=== PATIENT | female | born 1980 ===

== ENCOUNTER 2017-03-14 08:49 | Observation (INO) | payer OTHER ==
--- NOTE | 2017-03-14 09:14 | C.PDOC ---
History Of Present Illness PERSIST MENSES X 13 DAYS. LONGER THAN USUAL, NORMALLY 3 DAYS LONG. +PELVIC PAIN. NO OTHER ASSOC SX EXAM NAD MILD PALLOR ABD NEG REMAINDER NEG Time Seen by Provider: 03/14/17 09:08 Chief Complaint (Nursing): Female Genitourinary History Per: Patient History/Exam Limitations: no limitations Onset/Duration Of Symptoms: Days (13) Current Symptoms Are (Timing): Still Present Quality Of Discomfort: "Pain" Associated Symptoms: denies: Fever, Chills, Vomiting, Urinary Symptoms Recent travel outside of the [place]: No Abnormal Vaginal Bleeding: Yes Past Medical History Reviewed: Historical Data, Nursing Documentation, Vital Signs Vital Signs: Last Vital Signs Temp 98.9 F 03/14/17 13:35 Pulse 93 H 03/14/17 13:35 Resp 18 03/14/17 13:35 BP 120/80 03/14/17 13:35 Pulse Ox 99 03/14/17 13:35 - Medical History PMH: No Chronic Diseases Family History: States: Unknown Family Hx Review Of Systems Except As Marked, All Systems Reviewed And Found Negative. Constitutional: Negative for: Fever, Chills Gastrointestinal: Negative for: Nausea, Vomiting, Abdominal Pain Genitourinary: Positive for: Vaginal Bleeding, Pelvic Pain. Negative for: Dysuria, Frequency Skin: Negative for: Rash Physical Exam - Physical Exam Appears: Non-toxic, No Acute Distress Skin: Warm, Dry, Pale (MILD PALLOR) Head: Atraumatic, Normacephalic Oral Mucosa: Moist Chest: Symmetrical Cardiovascular: Rhythm Regular, No Murmur Respiratory: Normal Breath Sounds, No Rales, No Rhonchi, No Wheezing Gastrointestinal/Abdominal: Soft, No Tenderness, No Guarding, No Rebound Back: Normal Inspection Extremity: Normal ROM, Capillary Refill (< 2 SEC.) Neurological/Psych: Oriented x3, Normal Speech, Normal Cognition ED Course And Treatment - Laboratory Results Result Diagrams: 03/14/17 09:34 03/14/17 09:50 Urine POC: Positive O2 Sat by Pulse Oximetry: 100 (RA) Pulse Ox Interpretation: Normal Progress - Re-Evaluation Re-evaluation Note: 03/14/17 09:19 BLOODWORK, UA ORDERED. 03/14/17 13:32 APPEARS COMFORTABLE NAD VSS D/W DR BRICE DEL ROSARIO IN ER 09/12/17 14:02 admit ob obs - Data Reviewed Data Reviewed: Lab, Diagnostic imaging - Critical Care Citical Care: Excluding Proc Time Critical Care Time: 120 minutes - Continuity of Care Discussed patient case with:: Patient Discussed pt. case with organizational consultant/specialty: Obstetrics/Gynecology Disposition Counseled Patient/Family Regarding: Studies Performed, Diagnosis - Disposition Disposition: HOSPITALIZED Disposition Time: 14:02 Condition: STABLE Forms: [facility] (Wolof) - POA Present On Arrival: None - Clinical Impression Clinical Impression: Threatened miscarriage - Scribe Statement The provider has reviewed the documentation as recorded by the Scribe SM All medical record entries made by the Scribe were at my direction and personally dictated by me. I have reviewed the chart and agree that the record accurately reflects my personal performance of the history, physical exam, medical decision making, and the department course for this patient. I have also personally directed, reviewed, and agree with the discharge instructions and disposition. Decision To Admit - Pt Status Changed To: Hospital Disposition Of: Observation - . Bed Request Type: MANAGER PROGRAM Admitting Physician: Oz Black Patient Diagnosis: Threatened miscarriage
[2017-03-14 09:38] LABS: HEMATOCRIT 36.6 % (34.0-47.0); MEAN CELL VOLUME 84.3 fL (81.0-99.0); MEAN CORPUSCULAR HEMOGLOBIN 28.3 pg (27.0-31.0); MEAN CORPUSCULAR HGB CONC 33.5 g/dL (33.0-37.0); RED CELL DISTRIBUTION WIDTH 14.1 % (11.5-14.5); WHITE BLOOD COUNT 7.2 K/uL (4.8-10.8)
[2017-03-14 09:44] LABS: RBC URINE 2 /hpf (0-3); URINE BACTERIA RARE (<OCC); URINE BILIRUBIN NEGATIVE (NEGATIVE); URINE BLOOD 1+ (NEGATIVE); URINE COLOR Yellow (YELLOW); URINE GLUCOSE (UA) NORMAL (Normal); URINE KETONE NEGATIVE (NEGATIVE); URINE LEUKOCYTE ESTERASE NEG Leu/uL (Negative); URINE PROTEIN NEGATIVE (NEGATIVE); URINE UROBILINOGEN NORMAL mg/dL (0.2-1.0); WBC URINE < 1 /hpf (0-5)
[2017-03-14 10:02] LABS: CHLORIDE 105 mmol/L (98-107)
[2017-03-14 10:03] LABS: POTASSIUM 4.1 mmol/L (3.6-5.2); SODIUM 139 mmol/L (132-148)
[2017-03-14 10:05] LABS: ALB/GLOB RATIO 1.2 (1.0-2.1); AST/SGOT 24 U/L (14-36); BILIRUBIN,TOTAL 0.6 mg/dL (0.2-1.3); BLOOD UREA NITROGEN 12 mg/dL (7-17); CARBON DIOXIDE 22 mmol/L (22-30); GFR AFRICAN-AMERICAN > 60; TOTAL PROTEIN 7.7 g/dL (6.3-8.3)
[2017-03-14 10:06] LABS: ALKALINE PHOSPHATASE 43 U/L (38-126); ALT/SGPT 20 U/L (9-52); CALCIUM 9.2 mg/dl (8.6-10.4); GLUCOSE,RANDOM 88 mg/dL (65-105)
--- NOTE | 2017-03-14 13:30 | US ---
Pelvic ultrasound. History: Pelvic pain. . Evaluate for ectopic . Comparison: None available. Technique: Real-time sonography was performed through the pelvis utilizing transabdominal and transvaginal techniques. Findings: LMP of 03/02/2017. Uterus: 8.9 x 5.0 x 6.5 centimeters. Heterogeneous echotexture. Anteverted. Heterogeneous echogenic foci in the anterior fundus of the uterus measuring 1.4 x 1.4 x 1.9 centimeters suggestive for a fibroid lesion. No discrete intrauterine identified. Endometrium measures 6 millimeters. Free fluid noted within the pelvic cul-de-sac and bilateral adnexa. Right ovary: 4.0 x 3.1 x 3.3 centimeters. Normal flow. Small follicles. Left ovary: Enlarged measuring 8.2 x 6.2 x 9.2 centimeters. Heterogeneous to increased flow. Heterogeneous complex cystic lesions with septations and solid mural nodularity at the level of the left ovary measuring 6.2 x 4.4 x 4.4 centimeters and 4.4 x 3.9 x 4.1 centimeters. Additional complex echogenic foci/mass at that level measuring 4 x 3.7 x 3.7 centimeters. Impression: No discrete intrauterine identified. In the setting of a positive test and lack of discrete intrauterine , considerations may include an ectopic versus missed versus early . Clinical correlation. Correlation with [employer] consultation and or follow-up sonogram is recommended if clinically indicated. Complex mass/lesion noted at the level of the left adnexa measuring up to 4.0 centimeters. Prominent enlarged left ovary measuring up to 8.2 centimeters with additional complex cystic lesions containing solid mural nodularity and thickened septations measuring up to 6.2 and 4.4 centimeters. Given a positive test and lack of discrete intrauterine , underlying ectopic at this level cannot be excluded. Clinical correlation. R[employer] C[employer] consultation and or follow-up sonogram may be helpful if clinically indicated. Free fluid within the pelvic cul-de-sac and at the bilateral adnexa. Heterogeneous echogenic foci in the anterior fundus of the uterus measuring 1.4 x 1.4 x 1.9 centimeters suggestive for a fibroid lesion.
[2017-03-14 14:02] VITALS: O2SAT 100
--- NOTE | 2017-03-14 14:24 | CP.PCM.HP ---
History of Present Illness - History of Present Illness History of Present Illness: Patient is a 37 yo presents for vaginal bleeding. Reports that last episode of bleeding (last period as per patient) was 03/02 and it lasted three days. States that she has been having pinkish spotting when wiping since then. Also reports feeling occasional generalized cramping, worse in the LLQ. Patient took a home test two days ago which was positive. Last episode of intercourse was 3 days ago. Denies headaches, dizziness, cp, palpitations, sob, urinary symptoms. OB Hx: G1: 2005 no complications G2: 2015 SAB with D+C, no complications G3: current [employer] Hx: LMP 03/02/ [facility] 13/regular/3-4 days Hx of ovarian cysts Denies hx of fibroids, STIs, abnormal pap smears Allergies: NKDA Medications: denies Medical Hx: PCOS Surgical Hx: denies Social Hx: denies alcohol, tobacco, drug use Family Hx: denies Present on Admission - Present on Admission Any Indicators Present on Admission: No History of DVT/PE: No History of Uncontrolled Diabetes: No Urinary Catheter: No Decubitus Ulcer Present: No Review of Systems - Constitutional Constitutional: As Per HPI. absent: Chills, Fatigue - EENT Eyes: absent: Blurred Vision, Change in Vision Ears: absent: Dizziness - Cardiovascular Cardiovascular: absent: Chest Pain, Dyspnea, Edema, Lightheadedness - Respiratory Respiratory: absent: Cough, Dyspnea, Wheezing - Gastrointestinal Gastrointestinal: Cramping. absent: Abdominal Pain, Constipation, Diarrhea, Nausea, Vomiting - Genitourinary Genitourinary: absent: Difficulty Urinating - Neurological Neurological: absent: Confusion, Dizziness, Headaches - Psychiatric Psychiatric: absent: Anxiety, Confusion, Depression Past Patient History - Infectious Disease Hx of Infectious Diseases: None - Past Social History Smoking Status: Never Smoked - PSYCHIATRIC Hx Substance Use: No - SURGICAL HISTORY Hx Surgeries: No Meds Allergies/Adverse Reactions: Allergies Allergy/AdvReac Type Severity Reaction Status Date / Time No Known Allergies Allergy Verified 03/14/17 09:04 Physical Exam - Constitutional Appears: Well, Non-toxic - Head Exam Head Exam: ATRAUMATIC, NORMAL INSPECTION - Eye Exam Eye Exam: EOMI, Normal appearance Pupil Exam: NORMAL ACCOMODATION, PERRL - ENT Exam ENT Exam: Mucous Membranes Moist - Neck Exam Neck exam: Positive for: Full Rom - Respiratory Exam Respiratory Exam: Clear to Auscultation Bilateral, NORMAL BREATHING PATTERN. absent: Rales, Rhonchi, Wheezes - Cardiovascular Exam Cardiovascular Exam: REGULAR RHYTHM, +S1, +S2. absent: Systolic Murmur - GI/Abdominal Exam GI & Abdominal Exam: Soft. absent: Distended, Guarding, Rebound, Rigid, Tenderness - Extremities Exam Extremities exam: Positive for: normal inspection, pedal pulses present. Negative for: calf tenderness - Back Exam Back exam: NORMAL INSPECTION - Neurological Exam Neurological exam: Alert, CN II-XII Intact, Oriented x3 - Psychiatric Exam Psychiatric exam: Normal Affect, Normal Mood - Skin Skin Exam: Dry, Normal Color, Warm Results - Vital Signs Recent Vital Signs: Last Vital Signs Temp 98.9 F 03/14/17 13:35 Pulse 93 H 03/14/17 13:35 Resp 18 03/14/17 13:35 BP 120/80 03/14/17 13:35 Pulse Ox 100 03/14/17 14:02 - Labs Result Diagrams: 03/14/17 09:34 03/14/17 09:50 Assessment & Plan - Assessment and Plan (Free Text) Assessment: 37 year old presents for vaginal bleeding, early IUP vs Ectopic vs Missed TVUS: No discrete intrauterine identified. In the setting of a positive test and lack of discrete intrauterine , considerations may include an ectopic versus missed versus early . Complex mass/lesion noted at the level of the left adnexa measuring up to 4.0 centimeters. Prominent enlarged left ovary measuring up to 8.2 centimeters with additional complex cystic lesions containing solid mural nodularity and thickened septations measuring up to 6.2 and 4.4 centimeters. Given a positive test and lack of discrete intrauterine , underlying ectopic at this level cannot be excluded. Free fluid within the pelvic cul-de-sac and at the bilateral adnexa. Heterogeneous echogenic foci in the anterior fundus of the uterus measuring 1.4 x 1.4 x 1.9 centimeters suggestive for a fibroid lesion. Plan: 1. Vaginal bleeding (Rule out ectopic vs early IUP vs missed ) - Stable, afebrile - Admit for observation - F/U stat CBC - F/U am beta hcg - Serial abdominal exams - Diet NPO - LR at 125cc/hr - Rh positive, no rhogam needed at this time - Plan d/w attending
[2017-03-14] MEDS: Lactated Ringer's 1,000 ML IV SCH ×2 (15:30→23:21)
[2017-03-14 18:27] LABS: BASO % 0.4 % (0.0-2.0); EOS % 0.2 % (0.0-4.0); LYMPH # 1.6 K/uL (1.0-4.3); LYMPH % 16.7 % (20.0-40.0); MEAN CELL VOLUME 83.6 fL (81.0-99.0); MEAN CORPUSCULAR HEMOGLOBIN 28.6 pg (27.0-31.0); MEAN CORPUSCULAR HGB CONC 34.3 g/dL (33.0-37.0); MEAN PLATELET VOLUME 9.2 fL (7.2-11.7); MONO # 0.5 K/uL (0.0-0.8); MONO % 5.1 % (0.0-10.0); RED CELL DISTRIBUTION WIDTH 13.8 % (11.5-14.5); WHITE BLOOD COUNT 9.9 K/uL (4.8-10.8)
[2017-03-15] MEDS: Lactated Ringer's 1,000 ML IV SCH (06:46)
[2017-03-15 08:11] LABS: BASO % 0.4 % (0.0-2.0); EOS # 0.1 K/uL (0.0-0.7); EOS % 0.8 % (0.0-4.0); LYMPH # 1.7 K/uL (1.0-4.3); LYMPH % 23.5 % (20.0-40.0); MEAN CELL VOLUME 83.9 fL (81.0-99.0); MEAN CORPUSCULAR HEMOGLOBIN 28.3 pg (27.0-31.0); MEAN CORPUSCULAR HGB CONC 33.7 g/dL (33.0-37.0); MEAN PLATELET VOLUME 9.1 fL (7.2-11.7); MONO # 0.4 K/uL (0.0-0.8); MONO % 5.6 % (0.0-10.0); RED CELL DISTRIBUTION WIDTH 13.9 % (11.5-14.5); WHITE BLOOD COUNT 7.4 K/uL (4.8-10.8)
[2017-03-15 08:58] LABS: CHLORIDE 105 mmol/L (98-107)
[2017-03-15 08:59] LABS: SODIUM 139 mmol/L (132-148)
[2017-03-15 09:01] LABS: ALB/GLOB RATIO 1.2 (1.0-2.1); ALKALINE PHOSPHATASE 47 U/L (38-126); AST/SGOT 31 U/L (14-36); BILIRUBIN,TOTAL 0.7 mg/dL (0.2-1.3); CARBON DIOXIDE 25 mmol/L (22-30); GFR AFRICAN-AMERICAN > 60; TOTAL PROTEIN 7.6 g/dL (6.3-8.3)
[2017-03-15 09:02] LABS: ALT/SGPT 20 U/L (9-52); BLOOD UREA NITROGEN 9 mg/dL (7-17); CALCIUM 9.1 mg/dl (8.6-10.4); GLUCOSE,RANDOM 88 mg/dL (65-105)
--- NOTE | 2017-03-15 09:40 | CP.PCM.PN ---
Subjective - Date & Time of Evaluation Date of Evaluation: 03/15/17 Time of Evaluation: 07:15 - Subjective Subjective: Patient seen and examined at bedside. Per nursing no acute events overnight. Exercise Manager Kasandra Araiza in the room. Patient is doing well, denies having abdominal pain. Did not require pain medication for abdominal pain since admission. Denies any vaginal bleeding. States that this is a desired . Denies any nausea/vomiting, headaches, dizziness, cp, palpitations, sob, urinary symptoms. Objective - Vital Signs/Intake and Output Vital Signs (last 24 hours): Temp Pulse Resp BP Pulse Ox 98.7 F 90 18 117/67 100 03/15/17 08:00 03/15/17 08:00 03/15/17 08:00 03/15/17 08:00 03/15/17 08:00 Intake and Output: 03/15/17 03/15/17 06:59 18:59 Intake Total 1500 Balance 1500 - Medications Medications: Current Medications Lactated Ringer's (Lactated Ringer's) 1,000 mls @ 125 mls/hr IV .Q8H LUBA Last Admin: 03/15/17 06:46 Dose: 125 mls/hr - Labs Labs: 03/15/17 08:03 03/15/17 08:03 - Constitutional Appears: Well, Non-toxic - Head Exam Head Exam: ATRAUMATIC, NORMAL INSPECTION - Eye Exam Eye Exam: EOMI, Normal appearance Pupil Exam: NORMAL ACCOMODATION - ENT Exam ENT Exam: Mucous Membranes Moist - Neck Exam Neck Exam: Full ROM - Respiratory Exam Respiratory Exam: Clear to Ausculation Bilateral, NORMAL BREATHING PATTERN. absent: Rales, Rhonchi, Wheezes - Cardiovascular Exam Cardiovascular Exam: REGULAR RHYTHM, +S1, +S2. absent: Murmur - GI/Abdominal Exam GI & Abdominal Exam: Soft, Normal Bowel Sounds. absent: Firm, Guarding, Rigid, Tenderness, Rebound - Extremities Exam Extremities Exam: Normal Capillary Refill, Normal Inspection. absent: Calf Tenderness - Back Exam Back Exam: NORMAL INSPECTION - Neurological Exam Neurological Exam: Alert, Awake, Normal Gait, Oriented x3 - Psychiatric Exam Psychiatric exam: Normal Affect, Normal Mood - Skin Skin Exam: Dry, Normal Color, Warm Assessment and Plan - Assessment and Plan (Free Text) Assessment: 37 year old presents for vaginal bleeding, early IUP vs Ectopic vs Missed TVUS: No discrete intrauterine identified. In the setting of a positive test and lack of discrete intrauterine , considerations may include an ectopic versus missed versus early . Complex mass/lesion noted at the level of the left adnexa measuring up to 4.0 centimeters. Prominent enlarged left ovary measuring up to 8.2 centimeters with additional complex cystic lesions containing solid mural nodularity and thickened septations measuring up to 6.2 and 4.4 centimeters. Given a positive test and lack of discrete intrauterine , underlying ectopic at this level cannot be excluded. Free fluid within the pelvic cul-de-sac and at the bilateral adnexa. Heterogeneous echogenic foci in the anterior fundus of the uterus measuring 1.4 x 1.4 x 1.9 centimeters suggestive for a fibroid lesion. Plan: 1. Vaginal bleeding (Rule out ectopic vs early IUP vs missed ) - Stable, afebrile - Hgb stable - Beta hcg 960 -> 1252 - F/U serum progresterone - Will advance to regular diet - As this is a desired , will recheck beta hcg in am - Repeat TVUS in am - Plan d/w attending
[2017-03-16 08:55] VITALS: BP 125/79; PULSE 84; RESP 18; TEMP 98.8
--- NOTE | 2017-03-16 10:19 | US ---
HISTORY: Early IUP vs Missed Ab vs Ectopic. Beta HCG levels as follows 03/14/2017 960. ; 03/15/2017 1252 and 03/16/2017 1617. Patient's LMP 03/02/2017 estimated gestational age by LMP 2 weeks. COMPARISON: 03/14/2017 TECHNIQUE: Transvaginal FINDINGS: UTERUS: Measures 8.1 x 4.4 x 5.5 cm. Uterine size is within normal limits. An anterior fundal fibroid 1.7 x 1.3 x 1.7 cm -intramural appearing is suggested ENDOMETRIUM: Measures has thin sliver fluid echogenicity suggested. Mm in diameter. Near the lower uterine body the CERVIX: No cervical abnormality identified. Cervix measures 3.7 cm in length RIGHT OVARY: Measures 3.8 x 2.2 x 3.1 cm. No solid mass. Normal flow. LEFT OVARY: The left adnexa inferred left ovary are grossly abnormal. Eft adnexal complex cystic structures are identified 1 such structure complex cystic measures 5.8 x 4.2 x 4.1 cm with a solid 3.2 x 2.6 x 2.7 cm core within it this has been noted previously. Another contiguous complex cystic structure either part contiguous with the left ovary or part of the right ovary measures 1.7 x 1.3 x 1.9 cm. Additional complex cystic structures 2.6 x 1.5 x 2.2 and 4.2 x 3.8 x 4.0 cm are noted. A complex cystic left ovarian neoplasm-both benign and malignant with or without left hydrosalpinx is 1 consideration. An unusual unilateral a theca lutein cyst, although possible is believed less likely. Continued follow imaging with ultrasound with serial beta HCGs recommended. [facility] consultation recommended if not already obtained FREE FLUID: No significant free fluid noted. OTHER FINDINGS: Near the most superior aspect of the endometrium a possible tiny 2.8 mm gestational sac is questioned its size is below gestational sac dating-. But less than 5 weeks is possible. No embryonic pole is clearly identified at this stage A tiny pseudo sac from an ectopic is not excluded. . The beta HCG trending levels do appear to be rising but only 3 days are available. IMPRESSION: Possible tiny intrauterine gestation without embryonic pole less than 5 weeks. A pseudo sac of an ectopic is not excluded. The beta HCG levels reported or increasing. Only 3 days of trending available. Continued trending with last model maker console and follow-up transvaginal pelvic imaging 5 to 7 days recommended. Complex left adnexal anatomy -differential considerations are as noted above .
--- NOTE | 2017-03-16 15:41 | CP.PCM.DIS ---
<Long Mayer E - Last Filed: 03/16/17 20:52> Provider - Provider Date of Admission: 03/14/17 14:03 Attending physician: Oz Black MD Time Spent in preparation of Discharge (in minutes): 45 Hospital Course - Lab Results Lab Results: Most Recent Lab Values WBC 7.4 K/uL (4.8-10.8) 03/15/17 08:03 RBC 4.53 Mil/uL (3.80-5.20) 03/15/17 08:03 Hgb 12.8 g/dL (11.0-16.0) 03/15/17 08:03 Hct 38.0 % (34.0-47.0) 03/15/17 08:03 MCV 83.9 fL (81.0-99.0) 03/15/17 08:03 MCH 28.3 pg (27.0-31.0) 03/15/17 08:03 MCHC 33.7 g/dL (33.0-37.0) 03/15/17 08:03 RDW 13.9 % (11.5-14.5) 03/15/17 08:03 Plt Count 328 K/uL (130-400) 03/15/17 08:03 MPV 9.1 fL (7.2-11.7) 03/15/17 08:03 Neut % (Auto) 69.7 % (50.0-75.0) 03/15/17 08:03 Lymph % (Auto) 23.5 % (20.0-40.0) 03/15/17 08:03 Hubbard % (Auto) 5.6 % (0.0-10.0) 03/15/17 08:03 Eos % (Auto) 0.8 % (0.0-4.0) 03/15/17 08:03 Baso % (Auto) 0.4 % (0.0-2.0) 03/15/17 08:03 Neut # 5.2 K/uL (1.8-7.0) 03/15/17 08:03 Lymph # 1.7 K/uL (1.0-4.3) 03/15/17 08:03 Hubbard # 0.4 K/uL (0.0-0.8) 03/15/17 08:03 Eos # 0.1 K/uL (0.0-0.7) 03/15/17 08:03 Baso # 0.0 K/uL (0.0-0.2) 03/15/17 08:03 Sodium 139 mmol/L (132-148) 03/15/17 08:03 Potassium 4.0 mmol/L (3.6-5.2) 03/15/17 08:03 Chloride 105 mmol/L (98-107) 03/15/17 08:03 Carbon Dioxide 25 mmol/L (22-30) 03/15/17 08:03 Anion Gap 13 (10-20) 03/15/17 08:03 BUN 9 mg/dL (7-17) 03/15/17 08:03 Creatinine 0.8 MG/DL (0.7-1.2) 03/15/17 08:03 Est GFR ( Amer) > 60 03/15/17 08:03 Est GFR (Non-Af Amer) > 60 03/15/17 08:03 Random Glucose 88 mg/dL (65-105) 03/15/17 08:03 Calcium 9.1 mg/dl (8.6-10.4) 03/15/17 08:03 Total Bilirubin 0.7 mg/dL (0.2-1.3) 03/15/17 08:03 AST 31 U/L (14-36) 03/15/17 08:03 ALT 20 U/L (9-52) 03/15/17 08:03 Alkaline Phosphatase 47 U/L (38-126) 03/15/17 08:03 Total Protein 7.6 g/dL (6.3-8.3) 03/15/17 08:03 Albumin 4.1 g/dL (3.5-5.0) 03/15/17 08:03 Globulin 3.5 gm/dL (2.2-3.9) 03/15/17 08:03 Albumin/Globulin Ratio 1.2 (1.0-2.1) 03/15/17 08:03 Progesterone 8.57 ng/mL 03/15/17 08:03 Beta HCG, Quant 1617.30 mIU/ML 03/16/17 07:42 Urine Color Yellow (YELLOW) 03/14/17 09:28 Urine Clarity Clear (Clear) 03/14/17 09:28 Urine pH 5.0 (5.0-8.0) 03/14/17 09:28 Ur Specific [place] 1.011 (1.003-1.030) 03/14/17 09:28 Urine Protein Negative mg/dL (NEGATIVE) 03/14/17 09:28 Urine Glucose (UA) Normal mg/dL (Normal) 03/14/17 09:28 Urine Ketones Negative mg/dL (NEGATIVE) 03/14/17 09:28 Urine Blood 1+ (NEGATIVE) H 03/14/17 09:28 Urine Nitrate Negative (NEGATIVE) 03/14/17 09:28 Urine Bilirubin Negative (NEGATIVE) 03/14/17 09:28 Urine Urobilinogen Normal mg/dL (0.2-1.0) 03/14/17 09:28 Ur Leukocyte Esterase Neg Balta/uL (Negative) 03/14/17 09:28 Urine WBC (Auto) < 1 /hpf (0-5) 03/14/17 09:28 Urine RBC (Auto) 2 /hpf (0-3) 03/14/17 09:28 Ur Squamous Epith Cells 8 /hpf (0-5) H 03/14/17 09:28 Urine Bacteria Rare (<OCC) 03/14/17 09:28 Blood Type A POSITIVE 03/14/17 09:50 Antibody Screen Negative 03/14/17 09:50 - Hospital Course Hospital Course: As per admission: HPI: Patient is a 37 yo presents for vaginal bleeding. Reports that last episode of bleeding (last period as per patient) was 03/02 and it lasted three days. States that she has been having pinkish spotting when wiping since then. Also reports feeling occasional generalized cramping, worse in the LLQ. Patient took a home test two days ago which was positive. Last episode of intercourse was 3 days ago. Denies headaches, dizziness, cp, palpitations, sob, urinary symptoms. Hospital course: Patient was admitted with the consideration to rule out or rule in intrauterine , ectopic vs Missed . Patient was managed conservatively with serial exams, beta HCG and transvaginal ultrasound. During the course of admission, patient remained clinically stables with no acute changes. Patient was discharge upon medical clearance with instructions to return [facility] ED for repeat serum Beta-HCG levels on 03/18/17. Futhermore, patient was also informed about findings of complex left ovarian cyst and management options. Patient understood. This is a brief summary of events. For a complete course, refer to the medical record. Discharge Exam - Head Exam Head Exam: ATRAUMATIC, NORMAL INSPECTION - Eye Exam Eye Exam: EOMI, Normal appearance - Respiratory Exam Respiratory Exam: Clear to PA & Lateral, NORMAL BREATHING PATTERN - Cardiovascular Exam Cardiovascular Exam: REGULAR RHYTHM, +S1, +S2 - GI/Abdominal Exam GI & Abdominal Exam: Normal Bowel Sounds, Soft, Tenderness - Extremities Exam Extremities exam: normal capillary refill, normal inspection - Neurological Exam Neurological exam: Alert, Oriented x3 - Psychiatric Exam Psychiatric exam: Normal Affect, Normal Mood - Skin Skin Exam: Normal Color, Warm Discharge Plan - Follow Up Plan Condition: STABLE Disposition: HOME/ ROUTINE Instructions: Threatened Miscarriage (DC) <Talisha Gonzalez A - Last Filed: 03/16/17 23:32> Provider - Provider Date of Admission: 03/14/17 14:03 Attending physician: zO Black MD Hospital Course - Lab Results Lab Results: Most Recent Lab Values WBC 7.4 K/uL (4.8-10.8) 03/15/17 08:03 RBC 4.53 Mil/uL (3.80-5.20) 03/15/17 08:03 Hgb 12.8 g/dL (11.0-16.0) 03/15/17 08:03 Hct 38.0 % (34.0-47.0) 03/15/17 08:03 MCV 83.9 fL (81.0-99.0) 03/15/17 08:03 MCH 28.3 pg (27.0-31.0) 03/15/17 08:03 MCHC 33.7 g/dL (33.0-37.0) 03/15/17 08:03 RDW 13.9 % (11.5-14.5) 03/15/17 08:03 Plt Count 328 K/uL (130-400) 03/15/17 08:03 MPV 9.1 fL (7.2-11.7) 03/15/17 08:03 Neut % (Auto) 69.7 % (50.0-75.0) 03/15/17 08:03 Lymph % (Auto) 23.5 % (20.0-40.0) 03/15/17 08:03 Hubbard % (Auto) 5.6 % (0.0-10.0) 03/15/17 08:03 Eos % (Auto) 0.8 % (0.0-4.0) 03/15/17 08:03 Baso % (Auto) 0.4 % (0.0-2.0) 03/15/17 08:03 Neut # 5.2 K/uL (1.8-7.0) 03/15/17 08:03 Lymph # 1.7 K/uL (1.0-4.3) 03/15/17 08:03 Hubbard # 0.4 K/uL (0.0-0.8) 03/15/17 08:03 Eos # 0.1 K/uL (0.0-0.7) 03/15/17 08:03 Baso # 0.0 K/uL (0.0-0.2) 03/15/17 08:03 Sodium 139 mmol/L (132-148) 03/15/17 08:03 Potassium 4.0 mmol/L (3.6-5.2) 03/15/17 08:03 Chloride 105 mmol/L (98-107) 03/15/17 08:03 Carbon Dioxide 25 mmol/L (22-30) 03/15/17 08:03 Anion Gap 13 (10-20) 03/15/17 08:03 BUN 9 mg/dL (7-17) 03/15/17 08:03 Creatinine 0.8 MG/DL (0.7-1.2) 03/15/17 08:03 Est GFR ( Amer) > 60 03/15/17 08:03 Est GFR (Non-Af Amer) > 60 03/15/17 08:03 Random Glucose 88 mg/dL (65-105) 03/15/17 08:03 Calcium 9.1 mg/dl (8.6-10.4) 03/15/17 08:03 Total Bilirubin 0.7 mg/dL (0.2-1.3) 03/15/17 08:03 AST 31 U/L (14-36) 03/15/17 08:03 ALT 20 U/L (9-52) 03/15/17 08:03 Alkaline Phosphatase 47 U/L (38-126) 03/15/17 08:03 Total Protein 7.6 g/dL (6.3-8.3) 03/15/17 08:03 Albumin 4.1 g/dL (3.5-5.0) 03/15/17 08:03 Globulin 3.5 gm/dL (2.2-3.9) 03/15/17 08:03 Albumin/Globulin Ratio 1.2 (1.0-2.1) 03/15/17 08:03 Progesterone 8.57 ng/mL 03/15/17 08:03 Beta HCG, Quant 1617.30 mIU/ML 03/16/17 07:42 Urine Color Yellow (YELLOW) 03/14/17 09:28 Urine Clarity Clear (Clear) 03/14/17 09:28 Urine pH 5.0 (5.0-8.0) 03/14/17 09:28 Ur Specific [place] 1.011 (1.003-1.030) 03/14/17 09:28 Urine Protein Negative mg/dL (NEGATIVE) 03/14/17 09:28 Urine Glucose (UA) Normal mg/dL (Normal) 03/14/17 09:28 Urine Ketones Negative mg/dL (NEGATIVE) 03/14/17 09:28 Urine Blood 1+ (NEGATIVE) H 03/14/17 09:28 Urine Nitrate Negative (NEGATIVE) 03/14/17 09:28 Urine Bilirubin Negative (NEGATIVE) 03/14/17 09:28 Urine Urobilinogen Normal mg/dL (0.2-1.0) 03/14/17 09:28 Ur Leukocyte Esterase Neg Balta/uL (Negative) 03/14/17 09:28 Urine WBC (Auto) < 1 /hpf (0-5) 03/14/17 09:28 Urine RBC (Auto) 2 /hpf (0-3) 03/14/17 09:28 Ur Squamous Epith Cells 8 /hpf (0-5) H 03/14/17 09:28 Urine Bacteria Rare (<OCC) 03/14/17 09:28 Blood Type A POSITIVE 03/14/17 09:50 Antibody Screen Negative 03/14/17 09:50 Attending/Attestation - Attestation I have personally seen and examined this patient.: Yes I have fully participated in the care of the patient.: Yes I have reviewed all pertinent clinical information, including history, physical exam and plan: Yes Notes (Text): 03/16/17 23:25 Patient seen and evaluated with Resident at approximately 1045 hours. Anna Vital served as station usher I agree with the above entry in the progress note, with the exception - it was determined patient's LMP is most likely 01/30/17, hence EGA 6 weeks; the vaginal bleeding 03/04 x 3 days was very light and probably represents implantation. All else as above: patient to return 03/18/17 for repeat quantitative HCG level. Based on results, may also obtain an ultrasound. Discharge as above
== END 2017-03-16 13:42 | disposition home or self-care (01) ==
LOC: C.ER 08:49 → C.4M 14:03
PROVIDERS: ADMIT Student in an Organized Health Care Education/Training Program; ATTEND Student in an Organized Health Care Education/Training Program
DX: O20.0 Threatened abortion (principal); Z3A.01 Less than 8 weeks gestation of pregnancy
CPT/HCPCS: 36415; 76817; 76830; 76856; 80053; 81001; 84144; 84702; 85025; 85027; 86850; 86900; 87086; 99285; G0378; J7120

== ENCOUNTER 2017-03-17 09:49 | Emergency (ER) | payer OTHER ==
[2017-03-17 10:00] VITALS: BMI 25.7
[2017-03-17 10:01] VITALS: TEMP 99.3
[2017-03-17 10:37] LABS: RBC URINE 1 /hpf (0-3); URINE BILIRUBIN NEGATIVE (NEGATIVE); URINE BLOOD NEGATIVE (NEGATIVE); URINE COLOR Yellow (YELLOW); URINE GLUCOSE (UA) NORMAL (Normal); URINE KETONE TRACE mg/dL (NEGATIVE); URINE LEUKOCYTE ESTERASE NEG Leu/uL (Negative); URINE PROTEIN NEGATIVE (NEGATIVE); URINE UROBILINOGEN NORMAL mg/dL (0.2-1.0); WBC URINE 1 /hpf (0-5)
[2017-03-17 11:12] LABS: BASO % 0.4 % (0.0-2.0); EOS % 0.3 % (0.0-4.0); HEMATOCRIT 37.2 % (34.0-47.0); LYMPH # 1.2 K/uL (1.0-4.3); LYMPH % 15.8 % (20.0-40.0); MEAN CELL VOLUME 84.5 fL (81.0-99.0); MEAN CORPUSCULAR HGB CONC 33.1 g/dL (33.0-37.0); MEAN PLATELET VOLUME 8.9 fL (7.2-11.7); MONO # 0.4 K/uL (0.0-0.8); MONO % 5.8 % (0.0-10.0); RED CELL DISTRIBUTION WIDTH 13.6 % (11.5-14.5); WHITE BLOOD COUNT 7.5 K/uL (4.8-10.8)
[2017-03-17 11:19] LABS: CHLORIDE 105 mmol/L (98-107); SODIUM 139 mmol/L (132-148)
[2017-03-17 11:20] LABS: POTASSIUM 4.1 mmol/L (3.6-5.2)
[2017-03-17 11:22] LABS: CARBON DIOXIDE 23 mmol/L (22-30); GFR AFRICAN-AMERICAN > 60
[2017-03-17 11:23] LABS: BLOOD UREA NITROGEN 12 mg/dL (7-17); GLUCOSE,RANDOM 75 mg/dL (65-105)
--- NOTE | 2017-03-17 11:24 | C.PDOC ---
History Of Present Illness 37 year old female presents to the ED with complaints of left pelvic pain exacerbated by standing beginning at 5 am today. Patient states she was seen in the ED on Monday with complaints of vaginal bleeding, pelvic pain with + . sonogram performed on , showed left ovarian cyst, no iup, with concern for ectopic and patient was admitted for observation. Patient was instructed to return Monday for repeat bhcg, but due to return of pain, she came to ED today. She denies current vaginal bleeding, no fever, chills, nausea , or vomiting. Time Seen by Provider: 03/17/17 10:12 Chief Complaint (Nursing): Abdominal Pain History Per: Patient History/Exam Limitations: no limitations Onset/Duration Of Symptoms: Hrs (since 5 am today ) Radiation Of Pain To:: Back Quality Of Discomfort: "Pain" Associated Symptoms: denies: Fever, Chills, Nausea, Vomiting, Urinary Symptoms Exacerbating Factors: Other (standing ) Recent travel outside of the [place]: No Additional History Per: Prior Records Abnormal Vaginal Bleeding: No Past Medical History Reviewed: Historical Data, Nursing Documentation, Vital Signs Vital Signs: Last Vital Signs Temp 99.3 F 03/17/17 12:45 Pulse 84 03/17/17 15:07 Resp 20 03/17/17 15:07 BP 121/78 03/17/17 15:07 Pulse Ox 99 03/18/17 09:05 Family History: States: Unknown Family Hx - Social History Hx Alcohol Use: No Hx Substance Use: No - Immunization History Hx Tetanus Toxoid Vaccination: No Hx Influenza Vaccination: No Hx Pneumococcal Vaccination: No Review Of Systems Constitutional: Negative for: Fever, Chills Genitourinary: Positive for: Pelvic Pain (left sided). Negative for: Vaginal Bleeding Musculoskeletal: Positive for: Back Pain (left sided) Physical Exam - Physical Exam Additional Physical Exam Comments: Constitutional: No acute distress. Head: Normocephalic. Atraumatic. Eyes: PERRL. EOMI ENT: Moist mucous membranes. Neck: Supple. Cardiovascular: Regular rate and rhythm. No murmur. Chest: No tenderness. Respiratory: Clear to auscultation bilaterally. No wheezing, rhonchi, or rales. GI: Soft. Left pelvic tenderness. Nondistended. no rebound or guarding. Normoactive bowel sounds. Back: No CVA tenderness. Musculoskeletal: No swelling of extremities. No calf tenderness. Skin: No rash. Neurologic: Alert, no gross focal deficit. ED Course And Treatment - Laboratory Results Result Diagrams: 03/17/17 11:06 03/17/17 11:06 O2 Sat by Pulse Oximetry: 99 (room air ) - CT Scan/US Transvaginal US Other Rad Studies (CT/US): Read By Radiologist, Radiology Report Reviewed CT/US Interpretation: FINDINGS: UTERUS: Measures 4.7 x 6.2 x 9.3 cm. Normal in size and appearance. Fundal fibroid 1.5 x 1.2 cm. ENDOMETRIUM: Measures 4.4 Mm in diameter. Small saclike structure perhaps early intrauterine measuring 4.4 mm below threshold for calculation of reliable gestational age based on sac measurement. No pole identified, no yolk sac identified. CERVIX: No cervical abnormality identified. Closed cervix measures 3.03 cm. RIGHT OVARY: Measures 2.4 x 3.9 by 3.2 cm. No solid mass. Normal flow. Multiple subcentimeter follicles. LEFT OVARY: Measures 4.9 x 8.2 x 7.8 cm. Complex solid and cystic mass in the left ovary. This measures 4.1 x 4.6 cm with a solid component measuring 2.2 cm. An adjacent simple cyst 1.7 x 2.3 cm identified. Contiguous septated cyst 2.8 x 4.9 x 2.6 cm identified. Normal flow. FREE FLUID: No significant free fluid noted. OTHER FINDINGS: None. IMPRESSION: 1. Stable findings with respect to the uterus including uterine fibroid, small gestational sac or saclike structure in an otherwise and unremarkable endometrium. 2. Unremarkable right adnexa. 3. Stable findings left adnexa which is overall enlarged including complex cyst mass like structures, simple cystic and septated cyst. Progress Note: BMP, Beta quant, CBC, and transvaginal US was ordered. Dr. Black was called to discuss case and was called twice to give results but was unable to reached. Medical Decision Making Medical Decision Making: discussed with Dr Black; pt with slightly rising bhcg, and sac like structure now noted o sonogram, with stable left ovarian cyst, and may be discharged, to return on Monday to ED for repeat bhcg test, needs 48 hours apart. Disposition Discussed With : Oz Black Counseled Patient/Family Regarding: Studies Performed, Diagnosis, Need For Followup - Disposition Disposition: HOME/ ROUTINE Disposition Time: 14:49 Condition: STABLE Additional Instructions: Vuelva a ER el ashli para repetir la prueba de nancy BHCG. Traiga jovanny papel con usted para mostrarlo en ED. Vuelva al ER antes para cualquier empeoramiento del dolor abdominal, sangrado vaginal intenso o cualquier otra preocupacin. 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 - Scribe Statement The provider has reviewed the documentation as recorded by the Scribe Tamie Abbott All medical record entries made by the Scribe were at my direction and personally dictated by me. I have reviewed the chart and agree that the record accurately reflects my personal performance of the history, physical exam, medical decision making, and the department course for this patient. I have also personally directed, reviewed, and agree with the discharge instructions and disposition.
--- NOTE | 2017-03-17 12:29 | US ---
HISTORY: Positive test presenting with left lower quadrant pain. LMP 03/02/2017. COMPARISON: March 16, 2017. TECHNIQUE: Standard protocol for this study/examination. FINDINGS: UTERUS: Measures 4.7 x 6.2 x 9.3 cm. Normal in size and appearance. Fundal fibroid 1.5 x 1.2 cm. ENDOMETRIUM: Measures 4.4 Mm in diameter. Small saclike structure perhaps early intrauterine measuring 4.4 mm below threshold for calculation of reliable gestational age based on sac measurement. No pole identified, no yolk sac identified. CERVIX: No cervical abnormality identified. Closed cervix measures 3.03 cm. RIGHT OVARY: Measures 2.4 x 3.9 by 3.2 cm. No solid mass. Normal flow. Multiple subcentimeter follicles. LEFT OVARY: Measures 4.9 x 8.2 x 7.8 cm. Complex solid and cystic mass in the left ovary. This measures 4.1 x 4.6 cm with a solid component measuring 2.2 cm. An adjacent simple cyst 1.7 x 2.3 cm identified. Contiguous septated cyst 2.8 x 4.9 x 2.6 cm identified. Normal flow. FREE FLUID: No significant free fluid noted. OTHER FINDINGS: None. IMPRESSION: 1. Stable findings with respect to the uterus including uterine fibroid, small gestational sac or saclike structure in an otherwise and unremarkable endometrium. 2. Unremarkable right adnexa. 3. Stable findings left adnexa which is overall enlarged including complex cyst mass like structures, simple cystic and septated cyst.
[2017-03-17 12:45] VITALS: RESP 20
[2017-03-17 15:08] VITALS: BP 121/78; PULSE 84
[2017-03-18 09:01] VITALS: O2SAT 99
== END 2017-03-17 15:08 | disposition home or self-care (01) ==
LOC: C.ER 09:49
DX: O20.0 Threatened abortion (principal); Z3A.00 Weeks of gestation of pregnancy not specified

== ENCOUNTER 2017-03-23 16:38 | Emergency (ER) | payer OTHER ==
[2017-03-23 16:38] VITALS: BMI 25.7
[2017-03-23 16:44] VITALS: BP 126/77; PULSE 87; RESP 16; TEMP 99; O2SAT 100
--- NOTE | 2017-03-23 17:29 | C.PDOC ---
History Of Present Illness <Lulu Ordonez - Last Filed: 03/23/17 18:32> <Elba Rivera - Last Filed: 03/23/17 20:40> 37 y/o female, , presents to Emergency Department for evaluation of vaginal bleeding for over 2 weeks. Pt states that she used 1 sanitary pad today. Pt was admitted on 03/14/17 for r/o ectopic . Note, hormone levels were elevated at that time indicating but no discrete intrauterine was identified in the transvaginal ultrasound. Otherwise, pt denies any vaginal discharge, abdominal pain, n/v, urinary frequency, dysuria, back pain, fever, or chills. (Lulu Ordonez) History Per: Patient History/Exam Limitations: no limitations Onset/Duration Of Symptoms: Days (2 weeks) Current Symptoms Are (Timing): Still Present Severity: None Pain Scale Rating Of: 0 Associated Symptoms: denies: Nausea, Vomiting, Diarrhea, Loss Of Appetite, Back Pain, Chest Pain, Urinary Symptoms Alleviating Factors: None Recent travel outside of the [place]: No Additional History Per: Patient, Prior Records <Lulu Ordonez - Last Filed: 03/23/17 18:32> <Elba Rivera - Last Filed: 03/23/17 20:40> Time Seen by Provider: 03/23/17 16:49 Chief Complaint (Nursing): Female Genitourinary Past Medical History Reviewed: Historical Data, Nursing Documentation, Vital Signs Family History: States: Unknown Family Hx - Social History Hx Alcohol Use: No Hx Substance Use: No - Immunization History Hx Tetanus Toxoid Vaccination: No Hx Influenza Vaccination: No Hx Pneumococcal Vaccination: No <Lulu Ordonez - Last Filed: 03/23/17 18:32> Vital Signs: Last Vital Signs Temp 99 F 03/23/17 16:42 Pulse 87 03/23/17 16:42 Resp 16 03/23/17 16:42 BP 126/77 03/23/17 16:42 Pulse Ox 100 03/23/17 18:41 Review Of Systems Except As Marked, All Systems Reviewed And Found Negative. Constitutional: Negative for: Fever, Chills Cardiovascular: Negative for: Chest Pain, Palpitations Respiratory: Negative for: Cough, Shortness of Breath Gastrointestinal: Negative for: Nausea, Vomiting, Abdominal Pain Genitourinary: Positive for: Vaginal Bleeding. Negative for: Dysuria, Frequency , Incontinence, Hematuria, Vaginal Discharge Musculoskeletal: Negative for: Back Pain <Lulu Ordonez - Last Filed: 03/23/17 18:32> Physical Exam - Physical Exam Appears: Non-toxic, No Acute Distress Skin: Normal Color, Warm, Dry, No Rash Head: Atraumatic, Normacephalic Eye(s): bilateral: Normal Inspection, EOMI Nose: Normal Oral Mucosa: Moist Neck: Normal ROM, Supple Chest: Symmetrical Cardiovascular: Rhythm Regular, No Murmur Respiratory: Normal Breath Sounds, No Rales, No Rhonchi, No Wheezing Gastrointestinal/Abdominal: Soft, No Tenderness, No Guarding, No Rebound Back: No CVA Tenderness Extremity: Normal ROM, No Pedal Edema Neurological/Psych: Oriented x3, Normal Speech <Lulu Ordonez - Last Filed: 03/23/17 18:32> ED Course And Treatment - Laboratory Results Result Diagrams: 03/23/17 17:22 03/23/17 17:22 O2 Sat by Pulse Oximetry: 100 (on RA) Pulse Ox Interpretation: Normal Progress Note: Blood work, UA, pelvis ultrasound ordered and reviewed. On re- eval, patient is resting comfortably, abdomen remains soft, non-tender. Pt denies any chest pain, shortness of breath, or lightheadedness. Case discussed with Dr. Black who agrees with plan. Case endorsed with Dr Rivera pending US and re- evaluation. <Lulu Ordonez - Last Filed: 03/23/17 18:32> - Laboratory Results Result Diagrams: 03/23/17 17:22 03/23/17 17:22 <Elba Rivera - Last Filed: 03/23/17 20:40> Progress <Lulu Ordonez - Last Filed: 03/23/17 18:32> - Data Reviewed Data Reviewed: Lab, Diagnostic imaging, Old records <Elba Rivera - Last Filed: 03/23/17 20:40> - Re-Evaluation Re-evaluation Note: 03/23/17 20:39 US REPORT REVIEWED. PT REQUESTING DC HOME. BETA INCREASING COMPARED TO PRIOR. DC FU OBGYN (Elba Rivera) Disposition - Disposition Disposition Time: 19:00 <Lulu Ordonez - Last Filed: 03/23/17 18:32> Counseled Patient/Family Regarding: Studies Performed, Diagnosis, Need For Followup - Disposition Disposition Time: 20:40 <Elba Rivera - Last Filed: 03/23/17 20:40> - Disposition Referrals: [facility] [Outside] Disposition: HOME/ ROUTINE Condition: IMPROVED Additional Instructions: Beta today was 7000. Follow up with your OB in 3-4 days for re-evaluation. Instructions: Threatened Miscarriage (ED) Forms: [employer] (Upper Sorbian) Print Language: MONGOLIAN - Clinical Impression Clinical Impression: Threatened miscarriage - PA / FLIGHT MECHANIC / Resident Statement MD/DO has reviewed & agrees with the documentation as recorded. - Scribe Statement The provider has reviewed the documentation as recorded by the Scribe <Lulu Ordonez - Last Filed: 03/23/17 18:32> <Elba Rivera - Last Filed: 03/23/17 20:40> - Scribe Statement Mary Sy All medical record entries made by the Scribe were at my direction and personally dictated by me. I have reviewed the chart and agree that the record accurately reflects my personal performance of the history, physical exam, medical decision making, and the department course for this patient. I have also personally directed, reviewed, and agree with the discharge instructions and disposition. (Lulu Ordonez)
[2017-03-23 17:35] LABS: CHLORIDE 104 mmol/L (98-107)
[2017-03-23 17:35] LABS: URINE BILIRUBIN NEGATIVE (NEGATIVE); URINE COLOR Yellow (YELLOW); URINE GLUCOSE (UA) NORMAL (Normal); URINE KETONE NEGATIVE (NEGATIVE); URINE LEUKOCYTE ESTERASE NEG Leu/uL (Negative); URINE PROTEIN NEGATIVE (NEGATIVE); URINE UROBILINOGEN NORMAL mg/dL (0.2-1.0); WBC URINE < 1 /hpf (0-5)
[2017-03-23 17:36] LABS: POTASSIUM 3.7 mmol/L (3.6-5.2); SODIUM 136 mmol/L (132-148)
[2017-03-23 17:37] LABS: RBC URINE 2 /hpf (0-3); URINE BACTERIA RARE (<OCC)
[2017-03-23 17:37] LABS: BASO # 0.1 K/uL (0.0-0.2); BASO % 0.7 % (0.0-2.0); EOS # 0.1 K/uL (0.0-0.7); HEMATOCRIT 36.2 % (34.0-47.0); MEAN CELL VOLUME 84.3 fL (81.0-99.0); MEAN CORPUSCULAR HEMOGLOBIN 28.2 pg (27.0-31.0); MEAN CORPUSCULAR HGB CONC 33.4 g/dL (33.0-37.0); MEAN PLATELET VOLUME 9.4 fL (7.2-11.7); MONO # 0.6 K/uL (0.0-0.8); MONO % 7.4 % (0.0-10.0); RED CELL DISTRIBUTION WIDTH 13.6 % (11.5-14.5); WHITE BLOOD COUNT 8.3 K/uL (4.8-10.8)
[2017-03-23 17:38] LABS: ALB/GLOB RATIO 1.2 (1.0-2.1); AST/SGOT 23 U/L (14-36); BILIRUBIN,TOTAL 0.4 mg/dL (0.2-1.3); CARBON DIOXIDE 21 mmol/L (22-30); GFR AFRICAN-AMERICAN > 60; TOTAL PROTEIN 7.4 g/dL (6.3-8.3)
[2017-03-23 17:39] LABS: ALKALINE PHOSPHATASE 42 U/L (38-126); ALT/SGPT 22 U/L (9-52); BLOOD UREA NITROGEN 13 mg/dL (7-17); CALCIUM 8.5 mg/dl (8.6-10.4); GLUCOSE,RANDOM 94 mg/dL (65-105)
[2017-03-23 17:39] LABS: URINE BLOOD TRACE (NEGATIVE)
--- NOTE | 2017-03-23 19:33 | US ---
EXAM: US First Trimester, Transabdominal CLINICAL HISTORY: 37 years old, female; Signs and symptoms; Lmp or gestational age (in weeks): 8-17; Other: Vag bleed; ; Additional info: Pain. Tiny fibroid seen on ultrasound; beta hCG 7079.9, beta hCG 1617.3 on 03/16/17 TECHNIQUE: Real-time transabdominal obstetrical ultrasound of the maternal pelvis and a first trimester with image documentation. COMPARISON: Prior images are not available for review. FINDINGS: Gestation: See below Uterus/cervix: Uterus measures approximately 10 x 5 x 6.4 cm. Myometrium is heterogeneous. There is a small fundal fibroid. Endometrium is not well visualized. There is a small cystic structure in the endometrium. Ovaries: Right ovary measures approximately 3.4 x 2.2 x 2.7 cm.There is expected blood flow on Doppler imaging Left ovary measures 9.5 x 6.2 x 9.8 cm. There are multiple follicles/cysts. Largest cyst measures 4.4 x 5.6 x 4.3 cm. There is an adjacent 4 x 4 x 4 cm cyst. There are additional smaller cysts. There is expected blood flow on Doppler imaging Free fluid: There is no free fluid. Bladder: Urinary bladder is incompletely distended which limits evaluation IMPRESSION: Enlarged left ovary with multiple cysts, no torsion; possible early intrauterine gestation; small uterine fibroid EXAM: US , Transvaginal CLINICAL HISTORY: 37 years old, female; Signs and symptoms; Lmp or gestational age (in weeks): 8-17; Other: Vag bleed; ; Additional info: Pain. Tiny fibroid seen on ultrasound; beta hCG 7079.9, beta hCG 1617.3 on 03/16/17 TECHNIQUE: Real-time transvaginal obstetrical ultrasound of the maternal pelvis and a first trimester with image documentation. Transvaginal imaging was used for better evaluation of the fetus and adnexa. COMPARISON: Prior images are not available for review.Exam Date/Time: 03/23/2017 5:03 PM FINDINGS: Gestation: There is a single gestational sac in the uterus. Gestational sac has mean diameter 7.3 mm. yolk sac and pole are not yet visible. There is an adjacent heterogeneous masslike structure 2.3 x 1.1 x 1.3 cm. Mass is avascular. Uterus: Not evaluated Ovaries: Right ovary measures 3.82 x 2.69 x 2.48 cm.There are multiple small follicles. There is intraovarian blood flow. There is fluid in the right adnexa the ovary Left ovary measures approximately 9.47 x 6.72 x 7.92 cm. There are multiple cysts of varying sizes. There is no torsion. There may be focal hemorrhage within one of the cysts. Free fluid: There is a small amount of free fluid in the pelvis. IMPRESSION: Intrauterine gestation too early to date; subchorionic hemorrhage; enlarged left ovary with multiple cysts and follicles, no torsion; free fluid in the cul-de-sac and right adnexa Followup suggested to document development of pole
== END 2017-03-23 21:01 | disposition home or self-care (01) ==
LOC: C.ER 16:38
DX: O20.0 Threatened abortion (principal); Z3A.00 Weeks of gestation of pregnancy not specified

== ENCOUNTER 2017-05-28 12:09 | Emergency (ER) | payer OTHER ==
[2017-05-28 12:09] VITALS: BMI 25.7
[2017-05-28 12:48] VITALS: RESP 18
[2017-05-28 13:41] LABS: RBC URINE 8 /hpf (0-3); URINE BILIRUBIN NEGATIVE (NEGATIVE); URINE BLOOD 1+ (NEGATIVE); URINE COLOR Yellow (YELLOW); URINE GLUCOSE (UA) NORMAL (Normal); URINE KETONE NEGATIVE (NEGATIVE); URINE LEUKOCYTE ESTERASE NEG Leu/uL (Negative); URINE PROTEIN NEGATIVE (NEGATIVE); URINE UROBILINOGEN NORMAL mg/dL (0.2-1.0); WBC URINE 3 /hpf (0-5)
[2017-05-28] MEDS ORDERED: Sodium Chloride 0.9% 1,000 ML IV ONE (13:48)
[2017-05-28 14:43] LABS: BASO % 0.4 % (0.0-2.0); EOS # 0.1 K/uL (0.0-0.7); HEMATOCRIT 37.5 % (34.0-47.0); LYMPH # 2.2 K/uL (1.0-4.3); LYMPH % 25.3 % (20.0-40.0); MEAN CELL VOLUME 84.2 fL (81.0-99.0); MEAN CORPUSCULAR HEMOGLOBIN 28.4 pg (27.0-31.0); MEAN CORPUSCULAR HGB CONC 33.7 g/dL (33.0-37.0); MEAN PLATELET VOLUME 9.6 fL (7.2-11.7); MONO # 0.5 K/uL (0.0-0.8); MONO % 5.4 % (0.0-10.0); RED CELL DISTRIBUTION WIDTH 13.3 % (11.5-14.5); WHITE BLOOD COUNT 8.6 K/uL (4.8-10.8)
[2017-05-28 14:58] LABS: ALB/GLOB RATIO 0.9 (1.0-2.1); ALKALINE PHOSPHATASE 50 U/L (38-126); ALT/SGPT 28 U/L (9-52); AST/SGOT 27 U/L (14-36); BILIRUBIN,TOTAL 0.4 mg/dL (0.2-1.3); BLOOD UREA NITROGEN 12 mg/dL (7-17); CARBON DIOXIDE 26 mmol/L (22-30); CHLORIDE 102 mmol/L (98-107); GFR AFRICAN-AMERICAN > 60; GLUCOSE,RANDOM 78 mg/dL (65-105); POTASSIUM 3.9 mmol/L (3.6-5.2); SODIUM 136 mmol/L (132-148); TOTAL PROTEIN 8.1 g/dL (6.3-8.3)
--- NOTE | 2017-05-28 16:31 | US ---
EXAM: US Pelvis Complete, Transabdominal US Pelvis, Transvaginal CLINICAL HISTORY: 37 years old, female; Pain; Pelvic pain; Additional info: Llq pain, h/o cyst, persistently positive hcg TECHNIQUE: Real-time transabdominal and transvaginal pelvic ultrasound (complete) with image documentation. Transvaginal imaging was used for better evaluation of the endometrium and adnexa. COMPARISON: No relevant prior studies available. FINDINGS: Uterus/cervix: The uterus measures 7.9 x 5.8 x 7.1 cm.. The endometrial stripe measures 1.1 cm. Right ovary: The right ovary measures 4.3 x 2.8 by 3.4 cm. Blood flow seen in the right ovary with color Doppler examination. Left ovary: The left ovary measures 12.9 x 6.7 x 12.2 cm. the ovary contains a septated complex cyst. Septations are nodular and vascular. Free fluid: No free fluid. Bladder: Unremarkable as visualized. Wall is normal thickness for degree of distention. 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 EXAM: US Pelvis, Transvaginal EXAM DATE/TIME: Exam ordered 05/28/2017 1:49 PM CLINICAL HISTORY: 37 years old, female; Pain; Pelvic pain; Additional info: Llq pain, h/o cyst, persistently positive hcg TECHNIQUE: Real-time transvaginal pelvic ultrasound (complete) with image documentation. Transvaginal imaging was used for better evaluation of the endometrium and adnexa. COMPARISON: No relevant prior studies available. FINDINGS: Uterus/cervix: The uterus measures 9.2 x 5.2 x 6.6 cm. A 1.5 cm intramural fibroid is noted in the posterior uterine segment posteriorly. The endometrial stripe measures 1.7 cm. and is heterogeneous in density. The endometrium is markedly vascular on color Doppler examination. Right ovary: The right ovary measures 4 x 2 0.2 by 3.4 cm and contains several simple follicles. Blood flow seen in the right ovary color Doppler examination. Largest follicle measures 1.4 cm and contains simple fluid. A small amount of fluid surrounds the right ovary. Left ovary: The left ovary measures 13.4 x 9.8 x 11.6 cm.. MMultiple thick and nodular internal septations are present. The internal septations demonstrate vascularity on color Doppler examination. Bladder: Empty bladder which cannot be evaluated with this probe. Vasculature: IMPRESSION: 1. Left ovarian neoplasm. In the clinical setting of a positive beta hCG a malignant germ cell tumor is the primary diagnostic consideration. 2. Thickened and abnormally vascular endometrium. This could be secondary to hormones being produced by the ovarian neoplasm. A concurrent endometrial carcinoma should be excluded
[2017-05-28 18:37] VITALS: BP 125/81; PULSE 80; TEMP 98.5; O2SAT 99
--- NOTE | 2017-05-28 19:20 | C.PDOC ---
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 History/Exam Limitations: language barrier Onset/Duration Of Symptoms: Days (months), Intermittent Episodes Severity: Moderate Location Of Pain/Discomfort: LLQ Quality Of Discomfort: "Pain" Associated Symptoms: Nausea Exacerbating Factors: Movement Alleviating Factors: None Additional History Per: Prior Records Abnormal Vaginal Bleeding: No Past Medical History Reviewed: Historical Data, Nursing Documentation, Vital Signs Vital Signs: Last Vital Signs Temp 98.5 F 05/28/17 18:36 Pulse 80 05/28/17 18:36 Resp 18 05/28/17 18:36 BP 125/81 05/28/17 18:36 Pulse Ox 99 05/28/17 18:36 - Medical History Other PMH: Left ovarian cyst Surgical History: No Surg Hx Family History: States: Unknown Family Hx - Social History Hx Alcohol Use: No Hx Substance Use: No - Immunization History Hx Tetanus Toxoid Vaccination: No Hx Influenza Vaccination: No Hx Pneumococcal Vaccination: No Review Of Systems Except As Marked, All Systems Reviewed And Found Negative. Constitutional: Negative for: Fever, Weakness Cardiovascular: Negative for: Chest Pain Respiratory: Negative for: Shortness of Breath Gastrointestinal: Negative for: Vomiting Genitourinary: Negative for: Dysuria, Vaginal Discharge, Vaginal Bleeding Musculoskeletal: Negative for: Neck Pain Skin: Negative for: Rash Neurological: Negative for: Weakness, Numbness Physical Exam - Physical Exam Appears: Non-toxic, No Acute Distress Skin: Normal Color, Warm, Dry, No Rash Head: Atraumatic, Normacephalic Eye(s): bilateral: Normal Inspection, PERRL, EOMI Neck: Normal ROM, Supple Cardiovascular: Rhythm Regular Respiratory: Normal Breath Sounds, No Accessory Muscle Use Gastrointestinal/Abdominal: Soft, Tenderness (LLQ) Back: No CVA Tenderness Extremity: Normal ROM Neurological/Psych: Oriented x3, Normal Motor, Normal Sensation ED Course And Treatment - Laboratory Results Result Diagrams: 05/28/17 14:31 05/28/17 14:31 Interpretation Of Abnormal: Beta hcg level dropped to 50. Urine POC: Positive O2 Sat by Pulse Oximetry: 99 Pulse Ox Interpretation: Normal - CT Scan/US Pelvic US Other Rad Studies (CT/US): Read By Radiologist, Radiology Report Reviewed CT/US Interpretation: IMPRESSION: 1. Left ovarian neoplasm. In the clinical setting of a positive beta hCG a. malignant germ cell tumor is the primary diagnostic consideration. . 2. Thickened and abnormally vascular endometrium. This could be secondary to. hormones being produced by the ovarian neoplasm. A concurrent endometrial. carcinoma should be excluded - Physician Consult Information Physician Contacted: Bowen Thompson (Biometrics Consultant) Outcome Of Conversation: He evaluated pt in the ED. He states that pt may need surgery, but surgery could not be done at this hospital as pt needs a Biometrics Consultant- Oncologist. He recommends discharging the pt home to f/up with her Biometrics Consultant clinic for referral. Disposition Counseled Patient/Family Regarding: Studies Performed, Diagnosis, Need For Followup, Rx Given - Disposition Disposition: HOME/ ROUTINE Disposition Time: 19:22 Condition: FAIR Additional Instructions: Follow up with your Avionics Test Technician for referral to have surgical removal of your left ovary and for further evaluation and treatment. Return to the ER if you develop severe pain, worsening of symptoms or if you have any other concerns. 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
--- NOTE | 2017-05-28 19:45 | CP.PCM.CON ---
History of Present Illness - History of Present Illness History of Present Illness: Called to see patient who had been seen and evaluated at the ER for a left lower quadrant pain. She reports some vague intermittent lower abdominal pains located in the left LQ. Pain is about 3-4/10 with some degree of radiation to the groins. She has been using OTC meds for pain. She was previously seen at [facility] for the same problem where pelvic imaging reported a an enlarged left adnexal mass. The hcg levels was positive and Pt was made to f/u with her obstetrics and gynecology professor for further evaluation. A repeat sonogram/ CT was performed and this time revealed the mass enlarged from the previous dimensions. The endometrium appeared hyperplastic with a thickness of 1.7cm. The sonogram reported a possible ovarian neoplasm from the characteristcs of the adnexal mass. These fondings were d/w the Pt explaining the need for a transfer to a INSULATION EXTRUDER OPERATOR oncologist for prompt management of the mass. 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 The risks and benefits of prompt treatment were also discussed. Pt verbalized understanding of the issues discussed and promises to see her bush hog operator tomorrow. Review of Systems - Reproductive: Female Reproductive:Female: Normal Menses, Pelvic Pain Past Patient History - Infectious Disease Hx of Infectious Diseases: None - Past Social History Smoking Status: Never Smoked - MUSCULOSKELETAL/RHEUMATOLOGICAL Hx Falls: No - GENITOURINARY/GYNECOLOGICAL Hx Ovarian Cancer: No Hx Reproductive Disorders: No Hx Sexually Transmitted Disorders: No Other/Comment: Left ovarian cyst. : 4 Para: 1 Termination of : 1 - PSYCHIATRIC Hx Substance Use: No - SURGICAL HISTORY Hx Surgeries: No - ANESTHESIA Hx Anesthesia: No Meds Allergies/Adverse Reactions: Allergies Allergy/AdvReac Type Severity Reaction Status Date / Time No Known Allergies Allergy Verified 05/28/17 12:37 Physical Exam - Constitutional Appears: Well, No Acute Distress - Respiratory Exam Respiratory Exam: Clear to Auscultation Bilateral, NORMAL BREATHING PATTERN - Cardiovascular Exam Cardiovascular Exam: REGULAR RHYTHM - GI/Abdominal Exam GI & Abdominal Exam: Mass (Left cystic lower quadrant mass with mild tenderness on deep compression, smooth surface , ? mobile), Normal Bowel Sounds - Exam External exam: NORMAL EXTERNAL EXAM Speculum exam: NORMAL SPECULUM EXAM Bimanual exam: Adenexal Mass - Neurological Exam Neurological exam: Alert, Oriented x3 - Psychiatric Exam Psychiatric exam: Normal Affect Results - Vital Signs Recent Vital Signs: Last Vital Signs Temp 98.5 F 05/28/17 18:36 Pulse 80 05/28/17 18:36 Resp 18 05/28/17 18:36 BP 125/81 05/28/17 18:36 Pulse Ox 99 05/28/17 19:22 - Labs Result Diagrams: 05/28/17 14:31 05/28/17 14:31 Labs: Laboratory Results - last 24 hr 05/28/17 05/28/17 05/28/17 13:25 14:31 14:31 WBC 8.6 RBC 4.46 Hgb 12.7 Hct 37.5 MCV 84.2 MCH 28.4 MCHC 33.7 RDW 13.3 Plt Count 257 MPV 9.6 Neut % (Auto) 67.9 Lymph % (Auto) 25.3 [place] % (Auto) 5.4 Eos % (Auto) 1.0 Baso % (Auto) 0.4 Neut # 5.9 Lymph # 2.2 [place] # 0.5 Eos # 0.1 Baso # 0.0 PT 11.2 INR 1.0 APTT 27 Sodium Potassium Chloride Carbon Dioxide Anion Gap BUN Creatinine Est GFR ( Amer) Est GFR (Non-Af Amer) Random Glucose Calcium Total Bilirubin AST ALT Alkaline Phosphatase Total Protein Albumin Globulin Albumin/Globulin Ratio Beta HCG, Quant Urine Color Yellow Urine Clarity Hazy Urine pH 5.0 Ur Specific [place] 1.029 Urine Protein Negative Urine Glucose (UA) Normal Urine Ketones Negative Urine Blood 1+ H Urine Nitrate Negative Urine Bilirubin Negative Urine Urobilinogen Normal Ur Leukocyte Esterase Neg Urine WBC (Auto) 3 Urine RBC (Auto) 8 H Ur Squamous Epith Cells 4 Urine HCG, Qual Positive Blood Type Antibody Screen 05/28/17 05/28/17 14:31 14:31 WBC RBC Hgb Hct MCV MCH MCHC RDW Plt Count MPV Neut % (Auto) Lymph % (Auto) [place] % (Auto) Eos % (Auto) Baso % (Auto) Neut # Lymph # [place] # Eos # Baso # PT INR APTT Sodium 136 Potassium 3.9 Chloride 102 Carbon Dioxide 26 Anion Gap 13 BUN 12 Creatinine 0.7 Est GFR ( Amer) > 60 Est GFR (Non-Af Amer) > 60 Random Glucose 78 Calcium 9.0 Total Bilirubin 0.4 AST 27 ALT 28 Alkaline Phosphatase 50 Total Protein 8.1 Albumin 3.9 Globulin 4.2 H Albumin/Globulin Ratio 0.9 L Beta HCG, Quant 56.60 Urine Color Urine Clarity Urine pH Ur Specific [place] Urine Protein Urine Glucose (UA) Urine Ketones Urine Blood Urine Nitrate Urine Bilirubin Urine Urobilinogen Ur Leukocyte Esterase Urine WBC (Auto) Urine RBC (Auto) Ur Squamous Epith Cells Urine HCG, Qual Blood Type A POSITIVE Antibody Screen Negative Assessment & Plan (1) Pelvic pain Status: Acute (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 Recommend referral to the obstetrics and gynecology professor oncologist for further management 2.Re consult as neccessary. - Date & Time Date: 05/28/17 Time: 19:52
== END 2017-05-28 19:54 | disposition home or self-care (01) ==
LOC: C.ER 12:09
DX: C56.9 Malignant neoplasm of unspecified ovary (principal); R10.2 Pelvic and perineal pain
CPT/HCPCS: 76830; 76856; 80053; 81001; 84702; 84703; 85025; 85610; 85730; 86850; 86900; 96361; 96374; 99284; J1885; J7040